=== PATIENT | male | born 1960 | race Caucasian/White ===

== ENCOUNTER 2016-10-08 17:46 | Emergency (ER) | payer SELFPAY ==
[2016-10-08 18:09] VITALS: BP 135/87
--- NOTE | 2016-10-08 18:47 | UC ---
Bite Injury/Animal HPI - HPI Summary HPI Summary: The patient comes in today for: 1. Dog bite: Onset: 5 hours ago. Palliative/provocative: Pressure makes the pain worse. Quality: Sore Region: Inner lower right leg and lateral left knee area. Severity: 2/10 Time: Constant. 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 Last tetanus: 2013, Tdap. 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 2 Back surgeries 10 YEARS AGO. LEFT ACHILLES 15 YEARS AGO - Family History Known Family History: Positive: Diabetes Negative: Hypertension - Social History Occupation: Employed Full-time Alcohol Use: Occasionally Substance Use Type: None Smoking Status (MU): Never Smoked Tobacco - Immunization History Most Recent Tetanus Shot: 2013 Tdap Review of Systems Constitutional: Negative Skin: Negative Eyes: Negative ENT: Negative Respiratory: Negative Cardiovascular: Negative Gastrointestinal: Negative Genitourinary: Negative All Other Systems Reviewed And Are Negative: Yes Physical Exam Triage Information Reviewed: Yes Appearance: Well-Appearing, No Pain Distress, Well-Nourished Vital Signs: Initial Vital Signs Temp 99.8 F 10/08/16 18:02 Pulse 101 10/08/16 18:02 Resp 17 10/08/16 18:02 BP 135/87 10/08/16 18:02 Pulse Ox 95 10/08/16 18:02 Vital Signs Reviewed: Yes Eyes: Positive: Conjunctiva Clear. Negative: Discharge ENT: Positive: Hearing grossly normal. Negative: Pharyngeal erythema, Nasal congestion, Nasal drainage, TM bulging, TM dull, TM red, Tonsillar swelling, Tonsillar exudate Dental: Negative: Gross Decay/Caries @, Dental Fracture @ Neck: Positive: Supple, Nontender, No Lymphadenopathy. Negative: Nuchal Rigidity Respiratory: Positive: Lungs clear, No respiratory distress, No accessory muscle use. Negative: Crackles, Wheezing Cardiovascular: Positive: RRR, No Murmur Abdomen Description: Positive: Nontender, No Organomegaly, Soft. Negative: Distended, Guarding Musculoskeletal: Positive: Strength Intact, ROM Intact, No Edema Neurological: Positive: Alert, Muscle Tone Normal Psychological: Positive: Age Appropriate Behavior, Consolable Skin: Positive: Other - Bite areas: The upper right medial leg bite area: There is one puncture wound anterior and ecchymosis posteriorly. The left leg- lateral knee showed ecchymosis. Both places revealed tenderness. There is slight bleeding with pressure on the right lower leg.. Negative: rashes, breakdown Bite Injury Course/Dx - Course Course Of Treatment: The patient's case was discussed with [facility] ER who suggested calling the [facility] to see if rabies shots are needed. Call placed, but no answer--message left at about 7:05 PM. The [facility] Department patient admitting representative called. Case discussed. Will send patient home with [facility] following up with the patient and the complaint operator of the dog. - Differential Dx/Diagnosis Provider Diagnoses: Dog bite of the right lower leg and the left lateral knee area. Discharge - Discharge Plan Condition: Stable Disposition: HOME Patient Education Materials: Animal Bite (ED) Referrals: Escobar Aly DO [Primary Care Provider] - 1 Week (Please contact your primary care provider's office to schedule a follow up appointment early next week. IF you are not able to get in timely, you can come back to see us. ) Additional Instructions: Please inspect the wound areas daily. Gently clean with mild soap (Dove--no scents or colorings). Apply Polysporin ointment and a non-stick dressing with bandage. Watch for: 1. Increasing redness 2. Increasing tenderness 3. Increasing swelling 4. Increasing discharge. If these occur before you see your primary care provider, please be seen sooner by us or the ER. Keep elevated and use cold compresses for the first 2 days. Use Over-the- counter medications as needed for pain.
== END 2016-10-08 19:51 | disposition home or self-care (01) ==
LOC: UCCORT 17:46
DX: S81.831A Puncture wound without foreign body, right lower leg, initial encounter (principal); S81.032A Puncture wound without foreign body, left knee, initial encounter; W54.0XXA Bitten by dog, initial encounter; Y93.89 Activity, other specified; Y92.009 Unspecified place in unspecified non-institutional (private) residence as the place of occurrence of the external cause; Y99.0 Civilian activity done for income or pay; N40.0 Benign prostatic hyperplasia without lower urinary tract symptoms; E11.9 Type 2 diabetes mellitus without complications; E78.5 Hyperlipidemia, unspecified; I10 Essential (primary) hypertension; Z88.5 Allergy status to narcotic agent; Z91.013 Allergy to seafood
CPT/HCPCS: 99213; G0463

== ENCOUNTER 2016-10-15 14:26 | Emergency (ER) | payer SELFPAY ==
[2016-10-15 14:55] VITALS: BP 121/72
--- NOTE | 2016-10-15 16:29 | UC ---
Bite Injury/Animal HPI - HPI Summary HPI Summary: DOG BITE TO RIGHT CALF ONE WEEK AGO. HAS BEEN TAKING ANTIBIOTICS. HAVING INTERMITTENT BURNING PAIN IN CALF MUSCLE FOLLOWING INJURY. MANAGED WITH IBUPROFEN/TYLENOL BUT CONCERNED ABOUT SYMPTOM OF CONTINUED PAIN WITH WALKING. , - History of Current Complaint Chief Complaint: UCBiteInjury Stated Complaint: RIGHT LEG FU DOG BITE Time Seen by Provider: 10/15/16 16:02 Hx Obtained From: Patient Onset/Duration: Gradual Onset, Lasting Weeks, Still Present, Worse Since - FOUR DAYS Type of Bite: Pet Has Animal Been Immunized?: No Character: Puncture Aggravating Factor(s): Nothing Alleviating Factor(s): Nothing Associated Signs And Symptoms: Positive: Numbness/Tingling - BURNING PAIN. Negative: Fever, Erythema, Drainage, Swelling, Lymphadenopathy Animal Available for Observation: Yes Animal Control Notified: Yes - Risk Factors Infection/Sepsis Risk Factors: Diabetes - Allergies/Home Medications Allergies/Adverse Reactions: Allergies Allergy/AdvReac Type Severity Reaction Status Date / Time Morphine Allergy Vomiting Verified 10/15/16 14:54 Shellfish Allergy Allergy Eyes Verified 10/15/16 14:54 Itchy/Swollen/Red/Watery PMH/Surg Hx/FS Hx/Imm Hx Previously Healthy: Yes - Surgical History Surgical History: Yes Surgery Procedure, Year, and Place: L Rotator cuff SURGERY 2014. 2 Back surgeries 10 YEARS AGO. LEFT ACHILLES 15 YEARS AGO - Family History Known Family History: Positive: Diabetes Negative: Hypertension - Social History Occupation: Employed Full-time Lives: With Family Alcohol Use: Occasionally Substance Use Type: None Smoking Status (MU): Never Smoked Tobacco - Immunization History Most Recent Tetanus Shot: 2013 Tdap Review of Systems Constitutional: Negative Skin: Other - HEALING PUNCTURE WOUNDS FROM DOG BITE RIGHT CALF Eyes: Negative ENT: Negative Respiratory: Negative Cardiovascular: Negative Gastrointestinal: Negative Genitourinary: Negative Motor: Negative Neurovascular: Negative Musculoskeletal: Arthralgia, Myalgia Neurological: Other - BURNING PAIN RIGHT CALF Psychological: Negative All Other Systems Reviewed And Are Negative: Yes Physical Exam Triage Information Reviewed: Yes Appearance: Well-Appearing, No Pain Distress, Well-Nourished Vital Signs: Initial Vital Signs Pulse 77 10/15/16 14:50 Resp 17 10/15/16 14:50 BP 121/72 10/15/16 14:50 Pulse Ox 98 10/15/16 14:50 Vital Signs Reviewed: Yes Eye Exam: Normal ENT Exam: Normal ENT: Positive: Normal ENT inspection, Hearing grossly normal, TMs normal Dental Exam: Normal Neck exam: Normal Neck: Positive: Supple, Nontender, No Lymphadenopathy Respiratory Exam: Normal Respiratory: Positive: Chest non-tender, Lungs clear, Normal breath sounds, No respiratory distress, No accessory muscle use Cardiovascular Exam: Normal Cardiovascular: Positive: RRR, No Murmur, Pulses Normal Abdominal Exam: Normal Musculoskeletal Exam: Normal Musculoskeletal: Positive: Strength Intact, ROM Intact, No Edema Neurological Exam: Normal Psychological Exam: Normal Skin: Positive: Other - RIGHT CALF HEALING PUNCTURE WOUNDS FROM DOG BITE Bite Injury Course/Dx - Differential Dx/Diagnosis Differential Diagnosis/HQI/PQRI: Cellulitis, Compartment Syndrome, Joint Space Infection, Puncture, Rabies Exposure, Superficial Infection, Deep Space Infection, Other - NEUROPATHY Provider Diagnoses: RIGHT CALF NEUROPATHY S/P DOG BITE Discharge - Discharge Plan Condition: Stable Disposition: HOME Patient Education Materials: Animal Bite (ED), Neurapraxia (ED) Referrals: Aristeo Purcell MD [Medical Doctor] - Escobar Aly DO [Primary Care Provider] -
== END 2016-10-15 16:26 | disposition home or self-care (01) ==
LOC: UCCORT 14:26
DX: M79.2 Neuralgia and neuritis, unspecified (principal); S81.831D Puncture wound without foreign body, right lower leg, subsequent encounter; W54.0XXD Bitten by dog, subsequent encounter; Z88.5 Allergy status to narcotic agent; Z91.013 Allergy to seafood
CPT/HCPCS: 99211; G0463

== ENCOUNTER 2019-01-15 20:02 | Emergency (ER) | payer OTHER ==
--- OUTSIDE RECORDS SUMMARY | 2019-01-15 20:11 | XMS REPORT | Continuity of Care Document ---
:1960 External Reference #:[id number] Author Name Escobar Aly D.O. Address [address] [place] [id number] Care Team Providers Name Role Phone HCP/LW on file Care Team Information Collet Driller Unavailable Problems Active Problems Provider Date Type 2 diabetes mellitus Escobar Aly D.O. Onset: 02/21/2015 Essential hypertension Escobar Aly D.O. Onset: 02/21/2015 Benign prostatic hypertrophy with outflow Escobar Aly D.O. Onset: 2015 obstruction Anemia Escobar Aly D.O. Onset: 01/05/2017 Melena Escobar Aly D.O. Onset: 01/05/2017 Social History Type Date Description Comments Sex Unknown ETOH Use Occassional Alcohol Recreational Drug Use Denies Drug Use Tobacco Use Start: Unknown Patient has never smoked Smoking Status Reviewed: 11/25/18 Patient has never smoked Exercise Type/Frequency Exercises rarely Sun Exposure Does not use sunscreen Seat Belt/Car Seat Seat Belt Use - Yes Allergies, Adverse Reactions, Alerts Active Allergies Reaction Severity Comments Date Morphine eyes and throat swell 02/21/2015 Medications Active Medications SIG Qnty Indications Ordering Date Provider Nitroglycerin prn 5tabs Escobar Aly, 07/22/2018 0.4mg D.O. Tablets Sub Amlodipine Besylate one po daily 90tabs Escobar Aly, 07/22/2018 5mg D.O. Tablets Clopidogrel Bisulfate one po daily 90tabs Escobar Aly, 07/22/2018 D.O. 75mg Tablets Metoprolol Succinate 1 tab po daily 90tabs Escobar Aly, 07/22/2018 ER D.O. 25mg Tablets ER 24HR Atorvastatin Calcium one po hs 90tabs Jermain Escobar, 07/22/2018 40mg D.O. Tablets Victoza inject 1.8mg 27ml E11.9 Jermain Escobar, 05/12/2018 18mg/3ML Solution under the skin D.O. Pen-Inject once daily Losartan Potassium take 1 tablet 90tabs E11.9 Jermain Escobar, 05/12/2018 50mg daily in the D.O. Tablets morning for high blood pressure I10 Unifine Pentips Use With victoza Pens 100units Jermain Escobar, 02/07/2018 31G X daily D.O. 5 mm Misc Metformin HCL Take One Tablet By 90tabs E11.9 Escobar Aly, 10/05/2016 500mg Mouth Every Day (In D.O. Tablets Addition To 1000MG) BD Pen or appropriate 12units E11.9 Escobar Aly, 10/05/2016 Needle/Mini/Ultrafin needles for bydureon D.O. e/31G X 3/16" pen. use 1 weekly as 31G X 5 directed mm Misc Zinc 1 by mouth every day 90tabs E11.9 Escobar Aly, 08/23/2015 50mg Tablets D.O. Vitamin D3 1 tab by mouth every 90tabs E55.9 Escobar Aly, 06/06/2015 5000Unit day or 7 tabs once a D.O. Tablets week Tamsulosin HCL Take One Capsule By 90caps N40.0 Escobar Aly, 06/06/2015 0.4mg Mouth Every Day D.O. Capsules E11.9 Aspirin 1 by mouth every Unknown 02/20/2015 81mg Tablets day Fenofibrate Micronized Take One Capsule By 90caps E78.0 Escobar Aly, Mouth Every Day D.O. 134mg Capsules Metformin HCL Take One Tablet By 180tabs E11.9 Escobar Aly, 12/10/2014 1000mg Mouth Twice A Day D.O. Tablets History Medications Omeprazole 1 by mouth every 14caps Escobar Aly, 08/18/2018 - 20mg day D.O. 11/24/[address] Immunizations CPT Code Status Date Vaccine Lot # [id number] Given 02/01/2018 Influenza Virus Vaccine, Quadrivalent, Split, [id number] Preservative Free 62795 Given 01/05/2017 Influenza Virus Vaccine, Quadrivalent, Split, [id number] Preservative Free 93694 Given 05/08/2016 Influenza Virus Vaccine, Quadrivalent, Split, [id number] Preservative Free U-Flu Given 02/02/2015 Influenza,Unspecified 38785 Given 05/28/2014 Adacel or Boostrix, TDaP Vital Signs Date Vital Result Comment 11/25/2018 2:56pm BP Systolic 126 mmHg BP Diastolic 84 mmHg Weight 260.00 lb 08/18/2018 4:23pm BP Systolic 110 mmHg BP Diastolic 72 mmHg Height 69.5 inches 5'9.50" with shoes Weight 258.00 lb with shoes BMI (Body Mass Index) 37.5 kg/m2 Results Test Date Facility Test Result H/L Range Note Laboratory test 11/25/2018 In House Hemoglobin A1c 6.9 finding Comp Metabolic 08/19/2018 [facility] Sodium 139 mmol/L Normal 135- 145 Panel [phone] Potassium 4.4 mmol/L Normal 3.5-5.0 Chloride 105 mmol/L Normal 101-111 Co2 Carbon Dioxide 28 mmol/L Normal 22-32 Anion Gap 6 mmol/L Normal 2-11 Glucose 100 mg/dL Normal 70-100 Blood Urea Nitrogen 26 mg/dL High 6-24 Creatinine 1.21 mg/dL High 0.67-1.17 BUN/Creatinine Ratio 21.5 High 8-20 Calcium 9.4 mg/dL Normal 8.6-10.3 Total Protein 6.4 g/dL Normal 6.4-8.9 Albumin 4.5 g/dL Normal 3.2-5.2 Globulin 1.9 g/dL Low 2-4 Albumin/Globulin Ratio 2.4 Normal 1-3 Total Bilirubin 0.40 mg/dL Normal 0.2-1.0 Alkaline Phosphatase 49 U/L Normal 34-104 Alt 22 U/L Normal 7-52 Ast 15 U/L Normal 13-39 Egfr Non- 62.0 >60 Egfr 75.1 >60 1 CBC Auto Diff 08/19/2018 [facility] White Blood 6.1 10^3/uL Normal 3.5-10.8 [phone] Count Red Blood Count 4.79 10^6/uL Normal 4.18-5.48 Hemoglobin 13.7 g/dL Low 14.0-18.0 Hematocrit 41 % Normal 36-46 Mean Corpuscular Volume 85 fL Normal 80-94 Mean Corpuscular Hemoglobin 29 pg Normal 27-31 Mean Corpuscular HGB Conc 34 g/dL Normal 31-36 Red Cell Distribution Width 15 % Normal 10.5-15 Platelet Count 226 10^3/uL Normal 150-450 Mean Platelet Volume 9.1 fL Normal 7.4-10.4 Abs Neutrophils 3.8 10^3/uL Normal 1.5-7.7 Abs Lymphocytes 1.4 10^3/uL Normal 1.0-4.8 Abs Monocytes 0.8 10^3/uL Normal 0-0.8 Abs Eosinophils 0.1 10^3/uL Normal 0-0.6 Abs Basophils 0.1 10^3/uL Normal 0-0.2 Abs Nucleated RBC 0 10^3/uL Granulocyte % 61.8 % Lymphocyte % 23.1 % Monocyte % 12.6 % Eosinophil % 1.5 % Basophil % 1.0 % Nucleated Red Blood Cells % 0.1 Laboratory test finding 08/19/2018 [facility] Lipase 27 U/L Normal 11.0-82.0 [phone] Amylase 42 U/L Normal 29-103 Glycohemoglobin 07/12/2018 [facility] Glycohemoglobin 6.9 % High 4.2-6.3 2, 3 A1c LABORATORY (A1c) [phone] eAG 151 mg/dL Laboratory test 07/12/2018 [facility]. Troponin-I < 0.015 4 finding LABORATORY ng/mL [phone] Laboratory test 07/11/2018 [facility]. Troponin-I < 0.015 5 finding LABORATORY ng/mL [phone] CBS W/Automated 07/11/2018 [facility] White Blood 8.7 K/uL Normal 3.4-1 6 Diff LABORATORY Count 0.5 [phone] Red Blood Count 5.14 M/uL Normal 4.20-5.80 Hemoglobin 14.7 gm/dL Normal 12.8-17.0 Hematocrit 44.3 % Normal 38.0-48.0 Mean Cell Volume 86.2 fl Normal 80.0-96.0 Mean Corpuscular HGB 28.6 pg Normal 27.0-33.0 Mean Corpuscular HGB Conc 33.2 g/dL Normal 31.7-36.0 Platelet Count 255 K/uL Normal 155-360 Red Cell Distri Width SD 45.6 fl Normal 36-51 Red Cell Distri Width %CV 14.8 % Normal 11.6-15.8 Mean Platelet Volume 10.5 fL Normal 6.6-10.6 Neut% 64.4 % Normal 33.0-73.0 Lymph % 24.8 % Normal 20.0-42.0 [place] % 9.1 % Normal 0.0-10.0 Eo% 1.2 % Normal 0.0-6.6 Bas% 0.5 % Normal 0.0-1.1 Neut# 5.60 K/uL Normal 1.8-7.0 Lymph # 2.15 K/uL Normal 1.0-4.0 [place] # 0.79 K/uL Normal 0.0-0.8 Eos # 0.10 K/uL Normal 0.0-0.5 Baso # 0.04 K/uL Normal 0.0-0.1 1 Because ethnic data is not always readily available, this report includes an eGFR for both -Americans and non- Americans. The National Kidney Disease Education Program (NKDEP) does not endorse the use of the MDRD equation for patients that are not between the ages of 18 and 70, are , have extremes of body size, muscle mass, or nutritional status, or are non- or non-. According to the National Kidney Foundation, irrespective of diagnosis, the stage of the disease is based on the level of kidney function: Stage Description GFR(mL/min/1.73 m(2)) 1 Kidney damage with normal or decreased GFR 90 2 Kidney damage with mild decrease in GFR 60-89 3 Moderate decrease in GFR 30-59 4 Severe decrease in GFR 15-29 5 Kidney failure <15 (or dialysis) 2 CHEST PAIN 3 Elevated levels of HbA1c suggest the need for more aggressive treatment of glycemia. The [place] [employer] recommends that a primary goal of therapy should be a HbA1c of <7% and that physicians should re-evaluate the treatment regimen in patients with HbA1c values consistently >8%. 4 0.0 - 0.045 ng/mL: Normal 0.046 - 0.5 ng/mL: Suggestive 0.6 - 1.5 ng/mL: Consistent 5 0.0 - 0.045 ng/mL: Normal 0.046 - 0.5 ng/mL: Suggestive 0.6 - 1.5 ng/mL: Consistent 6 PAIN LT ARM, GAS IN CHEST Procedures Date Code Description Status 11/25/2018 [id number] Diabetic Foot Exam Completed 11/16/2017 [id number] Diabetic Retinal Eye Exam Completed 10/25/2015 [id number] Colonoscopy Completed Medical Devices Description No Information Available Encounters Type Date Location Provider Dx Diagnosis Office Visit 11/25/2018 Main Office Escobar Aly, E11.9 Type 2 diabetes 2:45p D.O. 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 mellitus without complications I10 Essential (primary) hypertension D64.9 Anemia, unspecified Z79.84 alf (current) use of oral hypoglycemic drugs G47.30 Sleep apnea, unspecified K92.1 Melena M46.06 Spinal enthesopathy, lumbar region R51 Headache K30 Functional dyspepsia Z98.61 Coronary angioplasty status Assessments Date Code Description Provider 11/25/2018 E11.9 Type 2 diabetes mellitus without complications Escobar Aly D.O. 11/25/2018 I10 Essential (primary) hypertension Escobar Aly D.O. 11/25/2018 D64.9 Anemia, unspecified Escobar Aly D.OMike 11/25/2018 Z79.84 alf (current) use of oral hypoglycemic Escobar Aly D.O. drugs 11/25/2018 G47.30 Sleep apnea, unspecified Escobar Aly D.O. 11/25/2018 K92.1 Yaneli Escobar Aly D.O. 11/25/2018 M46.06 Spinal enthesopathy, lumbar region Escobar Aly D.O. 11/25/2018 N40.1 Benign prostatic hyperplasia with lower Escobar Aly D.O. urinary tract sympto 08/18/2018 E11.9 Type 2 diabetes mellitus without complications Escobar Aly D.O. 08/18/2018 I10 Essential (primary) hypertension Escobar Aly D.O. 08/18/2018 D64.9 Anemia, unspecified Escobar Aly D.O. 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 drugs 08/18/2018 G47.30 Sleep apnea, unspecified Escobar Aly D.O. 08/18/2018 K92.1 Escobar Ocampo D.O. 08/18/2018 M46.06 Spinal enthesopathy, lumbar region Escobar Aly D.O. 08/18/2018 R51 Headache Escobar Aly D.O. 08/18/2018 K30 Functional dyspepsia Escobar Aly D.O. 08/18/2018 Z98.61 Coronary angioplasty status Escobar Aly D.O. Plan of Treatment Future Appointment(s):03/31/2019 1:45 pm - Escobar Aly D.OMike at Main Wlsrmo6602/02/2019 3:45 pm - Escobar Aly D.OMike at Main Cxunan1411/25/2018 - Escobar Aly D.OMikeE11.9 Type 2 diabetes mellitus without complicationsFollow up:4 months DM recheck w/ A1cI10 Essential (primary) veoqbnxcxefoA11.9 Anemia, htoxfqufnqyY17.84 ferry terminal agent (current) use of oral hypoglycemic onozwJ53.30 Sleep apnea, rjxassqzpdbR48.1 InttyqQ77.06 Spinal enthesopathy, lumbar fbdlrsB11.1 Benign prostatic hyperplasia with lower urinary tract sympto Functional Status Description No Information Available Mental Status Description No Information Available Referrals Description No Information Available
--- OUTSIDE RECORDS SUMMARY | 2019-01-15 20:11 | XMS REPORT | Continuity of Care Document ---
:1960 External Reference #:[id number] Author Name Escobar Aly D.O. Address [address] [place] [phone] Care Team Providers Name Role Phone HCP/LW on file Care Team Information Safety Physician Unavailable Problems Active Problems Provider Date Type [...] CPT Code Status Date Vaccine Lot # [id number] Given 02/01/2018 Influenza Virus Vaccine, Quadrivalent, Split, [id number] Preservative Free 70652 Given 01/05/2017 Influenza Virus Vaccine, Quadrivalent, Split, [id number] Preservative Free 19410 Given 05/08/2016 Influenza Virus Vaccine, Quadrivalent, Split, [id number] Preservative Free U-Flu Given 02/02/2015 Influenza,Unspecified 31187 Given 05/28/2014 Adacel or Boostrix, TDaP Vital [...] Hemoglobin A1c 6.9 finding Comp Metabolic 08/19/2018 [facility] Sodium 139 mmol/L Normal 135- 145 Panel [phone] Potassium 4.4 mmol/L Normal 3.5-5.0 Chloride 105 [...] 75.1 >60 1 CBC Auto Diff 08/19/2018 [facility] White Blood 6.1 10^3/uL Normal 3.5-10.8 [phone] Count Red Blood Count 4.79 10^6/uL Normal [...] Cells % 0.1 Laboratory test finding 08/19/2018 [facility] Lipase 27 U/L Normal 11.0-82.0 [phone] Amylase 42 U/L Normal 29-103 Glycohemoglobin 07/12/2018 [facility] Glycohemoglobin 6.9 % High 4.2-6.3 2, 3 A1c LABORATORY (A1c) [phone] eAG 151 mg/dL Laboratory test 07/12/2018 [facility] Troponin-I < 0.015 4 finding LABORATORY ng/mL [phone] Laboratory test 07/11/2018 [facility] Troponin-I < 0.015 5 finding LABORATORY ng/mL [phone] CBS W/Automated 07/11/2018 [facility] White Blood 8.7 K/uL Normal 3.4-1 6 Diff LABORATORY Count 0.5 [phone] Red Blood Count 5.14 M/uL Normal 4.20-5.80 [...] 33.0-73.0 Lymph % 24.8 % Normal 20.0-42.0 [place] % 9.1 % Normal 0.0-10.0 Eo% 1.2 % Normal 0.0-6.6 Bas% 0.5 % Normal 0.0-1.1 Neut# 5.60 K/uL Normal 1.8-7.0 Lymph # 2.15 K/uL Normal 1.0-4.0 [place] # 0.79 K/uL Normal 0.0-0.8 Eos # [...] for more aggressive treatment of glycemia. The [place] [employer] recommends that a primary goal [...] CHEST Procedures Date Code Description Status 11/25/2018 [id number] Diabetic Foot Exam Completed 11/16/2017 [id number] Diabetic Retinal Eye Exam Completed 10/25/2015 [id number] Colonoscopy Completed Medical Devices Description No Information Available Encounters Type Date Location Provider Dx Diagnosis Office Visit 11/25/2018 Main Office Escobar Aly, E11.9 Type 2 diabetes 2:45p D.O. mellitus without complications I10 Essential (primary) hypertension D64.9 Anemia, unspecified Z79.84 supervisor intermediates (current) use of oral hypoglycemic drugs G47.30 Sleep apnea, unspecified K92.1 Melena M46.06 Spinal enthesopathy, lumbar region N40.1 Benign prostatic hyperplasia with lower urinary tract symp Office Visit 08/18/2018 4:00p Main Office Escobar Aly E11.9 Type 2 diabetes D.O. mellitus without complications I10 Essential (primary) hypertension D64.9 Anemia, unspecified Z79.84 group home (current) use of oral hypoglycemic drugs G47.30 Sleep apnea, unspecified K92.1 Melena M46.06 Spinal enthesopathy, lumbar region R51 Headache K30 Functional dyspepsia Z98.61 Coronary angioplasty status Assessments Date Code Description Provider 11/25/2018 E11.9 Type 2 diabetes mellitus without complications Escobar Aly D.O. 11/25/2018 I10 Essential (primary) hypertension Escobar Aly D.O. 11/25/2018 D64.9 Anemia, unspecified Escobar Aly D.OMike 11/25/2018 Z79.84 group home (current) use of oral hypoglycemic Escobar Aly [...] Anemia, unspecified Escobar Aly D.O. 08/18/2018 Z79.84 supervisor intermediates (current) use of oral hypoglycemic Escobar Aly [...] pm - Escobar Aly D.OMike at Main Wuonid1002/02/2019 3:45 pm - Escobar Aly D.OMike at Main Nbjhla1911/25/2018 - Escobar Aly D.OMikeE11.9 Type 2 diabetes mellitus without complicationsFollow up:4 months DM recheck w/ A1cI10 Essential (primary) mfhebhmihivcQ80.9 Anemia, hvlzwikeswsB07.84 supervisor intermediates (current) use of oral hypoglycemic wfyhvW85.30 Sleep apnea, oubtdwhmijmK93.1 FvcqzcW16.06 Spinal enthesopathy, lumbar sdupgbP87.1 Benign prostatic hyperplasia with lower urinary tract sympto Functional Status Description No Information Available Mental Status Description No Information Available Referrals Description No Information Available
[2019-01-15] MEDS ORDERED: Ibuprofen TAB* 600 MG PO ONE (20:32)
[2019-01-15 20:34] VITALS: BP 178/92
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
[2019-01-15] MEDS ORDERED: Mupirocin 2% OINT* TUBE TOPICAL ONE (20:43)
== END 2019-01-15 21:19 | disposition home or self-care (01) ==
LOC: UCCORT 20:02
DX: T25.221A Burn of second degree of right foot, initial encounter (principal); X12.XXXA Contact with other hot fluids, initial encounter; E11.9 Type 2 diabetes mellitus without complications; Z79.84 Long term (current) use of oral hypoglycemic drugs; Z91.013 Allergy to seafood
CPT/HCPCS: 16020; 99213; A9270-GY; G0463

== ENCOUNTER 2023-08-11 05:36 | Observation (INO) ==
[2023-08-11] MEDS ORDERED: Chlorhexidine MOUTHWASH 0.12% 15 ML UDC ONE (06:07)
[2023-08-11] MEDS ORDERED: ceFAZolin 2 GM PREMIX 2 GM/50 ML BAG ONE (06:07)
[2023-08-11 06:29] LABS: Rapid COVID-19 Molecular Undetected (Undetected)
[2023-08-11] MEDS ORDERED: fentaNYL 100 mcg/2 ml 50 MCG/ML VIAL ONE (07:11)
[2023-08-11] MEDS ORDERED: Lidocaine 2% PF 5 ML VIAL ONE ×2 (07:11→07:24)
[2023-08-11] MEDS ORDERED: Propofol 10 MG/ML 20 ML BTL ONE ×2 (07:11→07:24)
[2023-08-11] MEDS ORDERED: Rocuronium 50 mg VIAL 10 mg/ml 5 ml VIAL (50 mg) ONE ×2 (07:12→07:24)
[2023-08-11] MEDS ORDERED: ceFAZolin VIAL VIAL ONE (07:13)
[2023-08-11] MEDS ORDERED: Gelfoam Sponge SIZE 100 SPONGE ONE (07:13)
[2023-08-11] MEDS ORDERED: Lidocaine 1% w EPI 1:100,000 MDV 20 ML VIAL ONE (07:13)
[2023-08-11] MEDS ORDERED: Thrombin 5,000 UNITS(BOVINE) for Ultrasound Guided Pseudoaneursym ONE (07:13)
[2023-08-11] MEDS ORDERED: Midazolam 2 mg/2 ml VIAL 1 mg/ml 2 ml VIAL (2 mg) ONE ×2 (07:15→07:25)
[2023-08-11] MEDS ORDERED: Ondansetron 4 mg VIAL 2 MG/ML 2 ml VIAL ONE (07:24)
[2023-08-11] MEDS ORDERED: HYDROmorphone 0.5 MG/0.5 ML SYRINGE ONE ×2 (07:24→08:31)
[2023-08-11] MEDS ORDERED: Succinylcholine 200 mg VIAL 20 mg/ml 10 ml VIAL (200 mg) ONE (07:24)
[2023-08-11] MEDS ORDERED: Dexamethasone IV 4 MG/ML VIAL 1 ml VIAL ONE ×2 (07:24→09:41)
[2023-08-11] MEDS ORDERED: HYDROmorphone 1 MG/1 ML SYRINGE IV PRN (08:01)
[2023-08-11] MEDS ORDERED: Naloxone 0.4 mg VIAL 0.4 mg/ml 1 ml VIAL IV PRN (08:01)
[2023-08-11] MEDS ORDERED: Ondansetron 4 mg VIAL 2 MG/ML 2 ml VIAL IV PRN ×2 (08:01→10:38)
[2023-08-11] MEDS ORDERED: Esmolol 10 MG/ML 10 ML (100 mg) IV ONE (08:28)
[2023-08-11] MEDS ORDERED: Magnesium Hydroxide LIQ 30 ML UDC PO PRN (10:38)
[2023-08-11] MEDS ORDERED: Benzocaine/Menthol LOZ MT PRN (10:38)
[2023-08-11] MEDS ORDERED: Dextran 70/Hypromellose Tears Eye Drops 15 ml BTL (for Artificials Tears) BOTH EYES PRN (10:38)
[2023-08-11] MEDS ORDERED: Phenol 1.4% Throat Spray BTL MT PRN (10:38)
[2023-08-11] MEDS ORDERED: Senna TAB 8.6 mg TAB PO PRN (10:38)
[2023-08-11] MEDS ORDERED: Acetaminophen IV 1 GM/100ML 1,000 MG/100 ML BAG IV ONE (11:00)
[2023-08-11] MEDS: Acetaminophen IV 1 GM/100ML 1,000 MG/100 ML BAG IV ONE (11:01)
[2023-08-11] MEDS: Lactated Ringers 1000 ml BAG 1,000 ML IV SCH (12:07)
[2023-08-11] MEDS: Calcium Carb (TUMS) 500 mg CHEW TAB PO PRN (12:47)
[2023-08-11] MEDS: Insulin GLARGINE 100 un/ml 10 ml VIAL SUBCUT SCH (21:40)
[2023-08-12] MEDS: Aspirin EC 81 mg TAB.EC (enteric coated) PO SCH (08:58)
[2023-08-12] MEDS: SILODOSIN 4 MG PO SCH (09:40)
[2023-08-12 10:35] VITALS: BP 119/77
== END 2023-08-12 10:55 | disposition home or self-care (01) ==
LOC: OR 05:36 → SSU 05:36
PROVIDERS: ADMIT Neurological Surgery; ATTEND Neurological Surgery